=== PATIENT | male | born 1995 | race Caucasian/White ===

== ENCOUNTER 2021-09-07 07:38 | Outpatient (CLI) | payer BC | END 2021-09-07 07:39 | disposition home or self-care (01) | LOC: TBSIIMAG 07:38 | PROVIDERS: ATTEND Neurological Surgery | DX: G93.5 Compression of brain (principal); Q06.4 Hydromyelia; M47.816 Spondylosis without myelopathy or radiculopathy, lumbar region; G95.0 Syringomyelia and syringobulbia | CPT/HCPCS: 70551; 72141; 72146; 72148 ==

== ENCOUNTER 2022-08-26 18:30 | Outpatient (CLI) | payer BC | END 2022-08-26 18:31 | disposition home or self-care (01) | LOC: SLEEPLAB 18:30 | PROVIDERS: ATTEND Family Medicine | DX: G47.33 Obstructive sleep apnea (adult) (pediatric) (principal); R53.83 Other fatigue; G31.84 Mild cognitive impairment of uncertain or unknown etiology; R06.83 Snoring; J30.2 Other seasonal allergic rhinitis | CPT/HCPCS: 95800 ==

== ENCOUNTER 2022-09-29 19:30 | Outpatient (CLI) | payer BC | END 2022-09-29 19:31 | disposition home or self-care (01) | LOC: SLEEPLAB 19:30 | PROVIDERS: ATTEND Family Medicine | DX: G47.33 Obstructive sleep apnea (adult) (pediatric) (principal); R53.83 Other fatigue; R06.83 Snoring; G31.84 Mild cognitive impairment of uncertain or unknown etiology | CPT/HCPCS: 95810 ==